=== PATIENT | female | born 1985 | race Caucasian/White ===

== ENCOUNTER 2017-04-03 10:29 | Emergency (ER) | payer MEDICAID, SELFPAY ==
[2017-04-03 10:43] VITALS: BP 114/75; PULSE 108; RESP 18; TEMP 36.8; O2SAT 100; BMI 18.6
--- NOTE | 2017-04-03 11:02 | HMH.EDUTC ---
[facility] – [place] Disposition Clinical Impression: Sinusitis Qualifiers: Sinusitis location: maxillary Chronicity: unspecified Qualified Code(s): J32.0 - Chronic maxillary sinusitis Otitis media Qualifiers: Otitis media type: unspecified Disposition: Home, Self-Care Condition on Discharge: Good Instructions: Sinusitis, DI for Otitis Media (Middle Ear Infection)-Child, DI for Sinusitis, Sinus Headache Additional Instructions: Follow up with family doctor Return if needed Take medication as prescribed Warm compresses to area may help with pain and tenderness If symptoms worsen go straight to ER of follow up with family doctor Prescriptions: Amoxicillin/Potassium Clav [Augmentin 875-125 Tablet] 1 tab PO Q12H 10 Days #20 tab predniSONE [Prednisone 20mg Tab] 20 mg PO BID 5 Days #10 tab Referrals: Michael Soares MD [Staff Physician] - Time of Disposition: 11:19 Medical Decision Making Vital Signs: 04/03/17 10:43 Temperature 98.2 F Temperature Source Oral Pulse Rate [Right Brachial] 108 H Respiratory Rate 18 Blood Pressure [Right Arm] 114/75 Blood Pressure Mean [Right Arm] 88 Blood Pressure Source [Right Arm] Automatic Cuff Blood Pressure Position [Right Arm] Sitting 02 Sat by Pulse Oximetry 100 Oxygen Delivery Method Room Air - Jamshid Inquiry Pt receiving controlled substance: No Jamshid was queried for this patient: No [facility] – [place] HPI - General Chief complaint: Ear Stated complaint: poss sinus and ear infection Time Seen by Provider: 04/03/17 11:04 Mode of Arrival: Ambulatory Source of Information: Patient Limitations: No Limitations Description of Symptoms (Recalled from Triage Doc. by RN): HEAD CONGESTION, LEFT EAR PAIN , SORE THROAT FOR 2 DAYS HEENT Symptoms (Recalled from RN notes): Yes (HEAD CONGESTION, SORE THROAT, LEFT EAR PAIN) Resp Symptoms (Recalled from RN notes): No Skin Symptoms (Recalled from RN notes): No MS Symptoms (Recalled from RN notes): No Functional Status (Recalled from RN notes): NA - History of Present Illness Provider Complaint: Patient state that she has been having sinus pain and pressure and pain in her left ear State that she noticed that she had some swollen lymph nodes under her ear State that pain has continued to get worse and she feels sore under her eyes Onset (ago): day(s) (3-4) Location: head Radiation: non-radiation Severity: moderate Severity scale (1-10): 5 Quality: other Consistency: constant Relieving factors: none Exacerbating factors: none Associated symptoms: cough, fever/chills Treatments prior to arrival: none - Related Data Previous Rx's Medication Instructions Recorded Amoxicillin/Potassium Clav 1 tab PO Q12H 10 Days #20 tab 04/03/17 [Augmentin 875-125 Tablet] predniSONE [Prednisone 20mg 20 mg PO BID 5 Days #10 tab 04/03/17 Tab] Allergies Allergy/AdvReac Type Severity Reaction Status Date / Time No Known Allergies Allergy Verified 04/03/17 10:47 - Worker's Comp Is this a Worker's Comp case?: No Is this an [employer] Worker's Comp?: No Is this a [place] Worker's Comp?: No [employer] Compl[employer] History Medical History: Denies:: Cancer, Diabetes Mellitus Type 1, Diabetes Mellitus Type 2, MRSA Amputation: No Fractures: No - *Social History Smoking Status: Current every day smoker Tobacco Type: cigarettes Alcohol Intake: never Substance Use Type: former substance user - Psychiatric History Expresses thoughts of harming self/others: None Suicide Plan Description: No Plan - Constitutional Reports body ache(s), Reports fever(s) Comments: Pain and tenderness in sinus area with palpation, Left ear red TM buldging - Eyes Denies blind spots, Denies blurry vision - ENT Reports ear pain, Reports facial pain, Reports nasal congestion, Reports neck lump Comments: Pain and tenderness noted Maxillary sinus Left ear Red TM buldging - Cardiovascular Denies chest pain - Respiratory Reports cough, Denies shortness of breath - Gas
--- NOTE | 2017-04-03 11:05 | ED_ITS ---
[facility] – [place] Disposition Clinical Impression: Sinusitis Qualifiers: Sinusitis location: maxillary Chronicity: unspecified Qualified Code(s): J32.0 - Chronic maxillary sinusitis Otitis media Qualifiers: Otitis media type: unspecified Disposition: Home, Self-Care Condition on Discharge: Good Instructions: Sinusitis, DI for Otitis Media (Middle Ear Infection)-Child, DI for Sinusitis, Sinus Headache Additional Instructions: Follow up with family doctor Return if needed Take medication as prescribed Warm compresses to area may help with pain and tenderness If symptoms worsen go straight to ER of follow up with family doctor Prescriptions: Amoxicillin/Potassium Clav [Augmentin 875-125 Tablet] 1 tab PO Q12H 10 Days #20 tab predniSONE [Prednisone 20mg Tab] 20 mg PO BID 5 Days #10 tab Referrals: Michael Soares MD [Staff Physician] - Time of Disposition: 11:19 Medical Decision Making Vital Signs: 04/03/17 10:43 Temperature 98.2 F Temperature Source Oral Pulse Rate [Right Brachial] 108 H Respiratory Rate 18 Blood Pressure [Right Arm] 114/75 Blood Pressure Mean [Right Arm] 88 Blood Pressure Source [Right Arm] Automatic Cuff Blood Pressure Position [Right Arm] Sitting 02 Sat by Pulse Oximetry 100 Oxygen Delivery Method Room Air - Jamshid Inquiry Pt receiving controlled substance: No Jamshid was queried for this patient: No [facility] – [place] HPI - General Chief complaint: Ear Stated complaint: poss sinus and ear infection Time Seen by Provider: 04/03/17 11:04 Mode of Arrival: Ambulatory Source of Information: Patient Limitations: No Limitations Description of Symptoms (Recalled from Triage Doc. by RN): HEAD CONGESTION, LEFT EAR PAIN , SORE THROAT FOR 2 DAYS HEENT Symptoms (Recalled from RN notes): Yes (HEAD CONGESTION, SORE THROAT, LEFT EAR PAIN) Resp Symptoms (Recalled from RN notes): No Skin Symptoms (Recalled from RN notes): No MS Symptoms (Recalled from RN notes): No Functional Status (Recalled from RN notes): NA - History of Present Illness Provider Complaint: Patient state that she has been having sinus pain and pressure and pain in her left ear State that she noticed that she had some swollen lymph nodes under her ear State that pain has continued to get worse and she feels sore under her eyes Onset (ago): day(s) (3-4) Location: head Radiation: non-radiation Severity: moderate Severity scale (1-10): 5 Quality: other Consistency: constant Relieving factors: none Exacerbating factors: none Associated symptoms: cough, fever/chills Treatments prior to arrival: none - Related Data Previous Rx's Medication Instructions Recorded Amoxicillin/Potassium Clav 1 tab PO Q12H 10 Days #20 tab 04/03/17 [Augmentin 875-125 Tablet] predniSONE [Prednisone 20mg 20 mg PO BID 5 Days #10 tab 04/03/17 Tab] Allergies Allergy/AdvReac Type Severity Reaction Status Date / Time No Known Allergies Allergy Verified 04/03/17 10:47 - Worker's Comp Is this a Worker's Comp case?: No Is this an [employer] [place] Worker's Comp?: No Is this a [place] Worker's Comp?: No [employer] History Medical History: Denies:: Cancer, Diabetes Mellitus Type 1, Diabetes Mellitus Type 2, MRSA Amputation: No Fractures: No - *Social History Smoking Status: Current every day smoker Tobacco Type: cigarettes Alcohol Intake: n
== END 2017-04-03 11:23 | disposition home or self-care (01) ==
PROVIDERS: Emergency Provider Nurse Practitioner; Family Provider Internal Medicine Adolescent Medicine
DX: J32.0 Chronic maxillary sinusitis (principal); F17.210 Nicotine dependence, cigarettes, uncomplicated
CPT/HCPCS: 87430; 87880; 99201

== ENCOUNTER 2021-04-15 20:30 | Emergency (ER) | payer MEDICAID, SELFPAY ==
[2021-04-15 20:33] VITALS: BP 122/93; PULSE 92; RESP 18; TEMP 37; BMI 23.9
[2021-04-15 20:57] VITALS: BP 122/93; PULSE 92; RESP 18; TEMP 37; O2SAT 99; BMI 23.8
[2021-04-15 21:03] LABS: Apearance,Urine Clear (Clear); Color,Urine Yellow (Yellow); Glucose,Urine (UA) Negative (Negative); Ketones,Urine Negative (Negative); PH,Urine 5.5 (5.0-8.5); Protein,Urine Negative (Negative); Specific Gravity, Urine 1.025 (1.005-1.030)
[2021-04-15 21:04] LABS: Bilirubin,Urine Negative (Negative); Blood, Urine Negative (Negative); UTC Leukocyte Esterase,Urine Negative (Negative); UTC Nitrate,Urine Negative (Negative); Urobilinogen,Urine 0.2 EU/dl (0.2)
--- NOTE | 2021-04-15 21:15 | HMH.EDUTC ---
[facility] – [place] Disposition Clinical Impression: Low back pain Qualifiers: Chronicity: acute Back pain laterality: right Sciatica presence: with sciatica Sciatica laterality: sciatica of right side Qualified Code(s): M54.41 - Lumbago with sciatica, right side Sciatica Qualifiers: Laterality: right Qualified Code(s): M54.31 - Sciatica, right side Disposition: Home, Self-Care Condition on Discharge: Good Instructions: DI for Low Back Pain, DI for Sciatica Additional Instructions: Go home and rest. It would be best if you rested tomorrow too. No heavy lifting. No twisting. Take the oral medications as directed. The muscle relaxer (cyclobenzaprine--Flexeril) will make you drowsy, so don't drive or operate heavy machinery after taking it. Don't start the oral steroids (medrol dose pack) until tomorrow, since you had the shots in here today. Follow up with your regular doctor. GO TO THE ER FOR ANY WORSENING SYMPTOMS OR CONCERN, ESPECIALLY BOWEL OR BLADDER ISSUES, SADDLE AREA NUMBNESS, FEVER, ETC Follow up with your primary care physician regarding the change in your breast. Prescriptions: Cyclobenzaprine HCl [Cyclobenzaprine 10mg Tab] 10 mg PO BIDP PRN #20 tab PRN Reason: Muscle Spasm Transmission Status: Received by [facility] methylPREDNISolone [Medrol] 4 mg PO DIRECTED 6 Days #21 packet Transmission Status: Received by [facility] Referrals: Kadie Jeffers APRN [Primary Care Provider] - Forms: Work/School Release Time of Disposition: 21:28 Medical Decision Making - Medical Records Medical records reviewed: No: I reviewed the patient's medical records. - Jamshid Inquiry Pt receiving controlled substance: No Vital Signs: 04/15/21 20:33 04/15/21 20:57 04/15/21 21:32 Temperature 98.6 F 98.6 F 98.6 F Temperature Source Oral Oral Pulse Rate 92 H Pulse Rate [Radial] 92 H 92 H Respiratory Rate 18 18 18 Blood Pressure 122/93 H Blood Pressure [Left Arm] 122/93 H 122/93 H Blood Pressure Mean [Left Arm] 102 102 Blood Pressure Position [Left Arm] Standing 02 Sat by Pulse Oximetry 99 Oxygen Delivery Method Room Air - Lab Data Lab results reviewed: Yes: I reviewed the patient's lab results. Lab Results 04/15/21 21:01: Urine Color Yellow, Urine Appearance Clear, Urine pH 5.5, Ur Specific [place] 1.025, Urine Protein Negative, Urine Glucose (UA) Negative, Urine Ketones Negative, Urine Blood Negative, Urine Nitrate Negative, Urine Bilirubin Negative, Urine Urobilinogen 0.2, Ur Leukocyte Esterase Negative Orders (Tests/Meds): ED MEDICATIONS Discontinued Medications Generic Name Dose Route Start Last Admin Trade Name Mono PRN Reason Stop Dose Admin Ketorolac Tromethamine 60 mg 04/15/21 21:23 04/15/21 21:29 Ketorolac 60mg/2ml Vial IM 04/15/21 21:24 60 mg ONCE ONE Administration Methylprednisolone Sodium Succinate 125 mg 04/15/21 21:23 04/15/21 21:29 Methylprednisolone Sod Succ 125mg Vial IM 04/15/21 21:24 125 mg ONCE ONE Administration [facility] [place] HPI - General Stated complaint: lower R back pain Time Seen by Provider: 04/15/21 21:16 Mode of Arrival: Ambulatory Source of Information: Patient Limitations: No Limitations Description of Symptoms (Recalled from Triage Doc. by RN): pt c/o lower R sided back pain that radiates down her R leg. pain is sharp in nature. pt also c/o burning with urination and urinary frequency. HEENT Symptoms (Recalled from RN notes): No Resp Symptoms (Recalled from RN notes): No Skin Symptoms (Recalled from RN notes): No MS Symptoms (Recalled from RN notes): Yes Functional Status (Recalled from RN notes): wnl - History of Present Illness Provider Complaint: She states that for the past 2 days she has had low back pain that radiates down the lateral aspect of her right leg. She denies any urinary complaint. She denies that her period is late or that she might be . She also states that she has noticed he
[2021-04-15 21:32] VITALS: BP 122/93; PULSE 92; RESP 18; TEMP 37
== END 2021-04-15 21:39 | disposition home or self-care (01) ==
LOC: ER 20:43 → UTC 20:51
PROVIDERS: Emergency Provider Nurse Practitioner Family; PCP Nurse Practitioner Family
DX: M54.41 Lumbago with sciatica, right side (principal)
CPT/HCPCS: 81003; 96372; 99202; G0463